=== PATIENT | female | born 1975 | race Two or more races ===

== ENCOUNTER 2023-03-19 20:25 | Emergency (ER) | payer OTHER ==
[~2023-03-19] VITALS: Ht 162.6 cm; Wt 52.6 kg
[2023-03-19] MEDS ORDERED: HUMIRA40 MG/0.2 SQ (21:20)
[2023-03-19] MEDS ORDERED: MILLIPRED5 MG (21:22)
[2023-03-19] MEDS ORDERED: TREXALL15 MG (21:22)
== END 2023-03-19 22:11 | disposition home or self-care (01) ==
LOC: ER 20:25
DX: H66.91 Otitis media, unspecified, right ear (principal); Z88.8 Allergy status to other drugs, medicaments and biological substances